=== PATIENT | female | born 1950 | race Hispanic/Latino ===

== ENCOUNTER 2017-12-27 06:27 | Day surgery (SDC) | payer MEDICARE ==
[2017-12-27] MEDS ORDERED: ECOTRIN PO ONE (06:46)
[2017-12-27] MEDS ORDERED: NACL 0.9% 500 ML 500 ML IV SCH (07:00)
[2017-12-27 07:31] LABS: Basophils # (Auto) 0.1 K/mm3 (0.0-0.1); Basophils % (Auto) 0.9 % (0.0-1.8); Eosinophils # (Auto) 0.3 K/mm3 (0.0-0.4); Eosinophils % (Auto) 4.4 % (0.0-4.3); Hematocrit 45.6 % (30.3-42.9); Hemoglobin 15.7 gm/dl (10.1-14.3); Lymphocytes # (Auto) 1.9 K/mm3 (1.2-5.4); Lymphocytes % (Auto) 30.3 % (13.4-35.0); Mean Corpuscular HGB Conc 34 % (30-34); Mean Corpuscular Hemoglobin 32 pg (28-32); Mean Corpuscular Volume 92 fl (79-97); Monocytes # (Auto) 0.4 K/mm3 (0.0-0.8); Monocytes % (Auto) 6.4 % (0.0-7.3); Platelet Count 268 K/mm3 (140-440); Red Blood Count 4.96 M/mm3 (3.65-5.03); Red Cell Distribution Width 12.9 % (13.2-15.2)
[2017-12-27 07:41] LABS: INR 0.87 (0.87-1.13)
[2017-12-27] MEDS ORDERED: HEPARIN/NS 5000 UNIT/500ML(CATH LAB) 1,000 ML IR ONE (07:48)
[2017-12-27 07:49] LABS: BUN/Creatinine Ratio 30; Blood Urea Nitrogen 21 mg/dL (7-17); Calcium 9.2 mg/dL (8.4-10.2); Hemolysis Index 538
[2017-12-27] MEDS ORDERED: XYLOCAINE 2% INFILTRATI ONE (07:49)
[2017-12-27] MEDS ORDERED: HEPARIN 10,000 UNITS/10 ML ONE (07:49)
[2017-12-27] MEDS ORDERED: NITROGLYCERIN SYRINGE 3 ML ONE (07:49)
[2017-12-27] MEDS ORDERED: CALAN ONE (07:49)
[2017-12-27] MEDS ORDERED: SUBLIMAZE ONE (07:50)
[2017-12-27] MEDS: VERSED ONE ×2 (08:09→08:16)
--- NOTE | 2017-12-27 09:44 | Nuclear Medicine Report ---
LUNG SCAN, VENTILATION AND PERFUSION: History: Shortness of breath. Findings: Inhalation of Xenon gas demonstrates a normal distribution of the activity throughout both lungs. The wash out phases show no focal retention of activity. After injection of Technetium 99m macroaggregated albumin gamma camera imaging of the lungs in multiple projections demonstrates normal pulmonary contours with a homogeneous distribution of activity. No focal areas of perfusion deficiency are identified. IMPRESSION: Normal study.
--- NOTE | 2017-12-27 09:45 | XRay Report ---
Single view chest: History: 4 VQ scan. Findings: Normal cardiomediastinal silhouette the trachea is midline. Suspicion of mild COPD. No acute consolidation, pneumothorax or pleural effusion. Impression: Suspicion of mild COPD
--- NOTE | 2017-12-27 09:45 | Short Stay Summary ---
Short Stay Documentation Date of service: 12/27/17 - History H&P: obtained from office - Allergies and Medications Current Medications: Allergies No Known Allergies Allergy (Unverified 12/27/17 06:27) Home Medications Medication Instructions Recorded Confirmed Last Taken Type Aspirin EC [Aspirin Enteric Coated 81 mg PO QDAY 12/27/17 12/27/17 12/26/17 History TAB] Calcium Carbonate [ Calcium 600 mg PO QDAY 12/27/17 12/27/17 12/26/17 History Elemental 600 mg] Magnesium Chloride [Mag Delay] 500 mg PO QDAY 12/27/17 12/27/17 12/26/17 History [place]-3S/Dha/Epa/Fish Oil [Fish 1 each PO QDAY 12/27/17 12/27/17 12/26/17 History Oil [place]-3 Softgel] Ubidecarenone [Coq-10] 100 mg PO QDAY 12/27/17 12/27/17 12/26/17 History Zinc Gluconate [Elemental Zinc] 25 mg PO QDAY 12/27/17 12/27/17 12/26/17 History Active Medications Sodium Chloride (Nacl 0.9% 500 Ml) 500 mls @ 50 mls/hr IV DIRECT OK Stop: 12/27/17 16:59 Last Admin: 12/27/17 07:07 Dose: 50 mls/hr Short Stay Discharge Plan Follow up with: RADHA GARCIA MD [Primary Care Provider] - 7 Days
--- NOTE | 2017-12-27 11:04 | Cardiac Catherization Report ---
CARDIAC CATHETERIZATION REFERRING PHYSICIAN: Dr. Jered Marie. INDICATION FOR PROCEDURE: The patient is a pleasant 67-year-old female with recurrent chest pain, nondiagnostic stress test, who is referred for left heart catheterization. Risks, benefits, and potential alternatives explained at length prior to obtaining informed consent. PROCEDURE IN DETAIL: The patient was brought to catheterization lab in postabsorptive state, prepped and draped in sterile fashion. Jose M's test in right hand was normal. A 2 mL of 2% lidocaine used to anesthetize the right right wrist. A standard 6-[place] hydrophilic sheath used to cannulate the right radial artery via modified Seldinger technique. All exchanges performed to exchange a J-tip guidewire. JL3.5 catheter used to engage the left main. No dampening or ventricularization. Cineangiography performed in all projections. JR4 catheter used to cross the aortic valve under fluoroscopic guidance. Left ventriculography performed in 30 [place] and 30 [place] projections via hand injections, catheter flushed. Manual pullback performed with continuous pressure monitoring. Catheter used to engage the right coronary. No dampening or ventricularization. Cineangiography performed in multiple projections. Given normal angiogram findings and recurrent chest pain, we decided to proceed with a root aortogram with a pigtail catheter and power injector in the [place] projection. Next, catheter removed from the body of wire, sheath removed. Manual pressure used to achieve hemostasis. Moderate sedation, I directly supervised the administration of moderate sedation with Versed and fentanyl from 8:06 a.m. to 8:40 a.m. DATA: Aortic pressure is 140/70, LV pressure is 140. ____ of 20 mmHg. Left ventriculography revealed normal systolic performance with estimated ejection fraction of 55% -60%. No evidence of aortic stenosis. CORONARY ANATOMY: This is a right dominant system. Right coronary is a large vessel, courses AV groove, distally bifurcates in the posterior descending and posterolateral branches. No discrete stenosis identified. Left main is a moderate sized vessel, no significant disease, bifurcates in left anterior descending and left circumflex. Left circumflex a moderate sized vessel, courses AV groove. OM trunk is widely patent. No significant disease. LAD is a moderate sized vessel, courses anterior intergroove, wraps around the apex, no significant disease. Root aortogram reveals normal contour, normal caliber, normal great vessel anatomy. No evidence of aortic insufficiency, penetrating aortic ulcer or dissection. CONCLUSIONS: 1. No angiographic evidence of significant epicardial coronary artery disease in this right dominant system. 2. Normal left ventricular systolic performance, estimated ejection fraction of 55%-60%. 3. No evidence of aortic stenosis. 4. Normal root aortography without evidence of dissection, penetrating ulcer, or aortic insufficiency. At this point, the patient is clinically stable, chest pain free, does have frequent PVCs noted in the office. We will start her on low dose beta blockade. She still is pending a Holter, follow up, standard radial care. Results of procedures discussed at length with the patient and family. All questions and concerns were addressed. Follow up with me in the office. JOB# [id number] SHRADDHA/VARUN
[2017-12-27 11:16] VITALS: BP 121/65
== END 2017-12-27 11:35 | disposition home or self-care (01) ==
LOC: CATHLABREC 06:27
PROVIDERS: ATTEND Internal Medicine
DX: R07.89 Other chest pain (principal); Z79.82 Long term (current) use of aspirin; Z79.899 Other long term (current) drug therapy
CPT/HCPCS: 36415; 71045; 78582; 80048; 84132; 85025; 85610; 85730; 93005; 93010; 93458; 93567; 99156; A9540; A9558; C1894; J1644; J2250; J3010; J7040; Q9967